=== PATIENT | female | born 2000 | race Hispanic/Latino ===

== ENCOUNTER 2025-08-10 15:57 | Emergency (ER) | payer OTHER ==
[~2025-08-10] VITALS: Ht 162.6 cm; Wt 65.8 kg
[2025-08-10 16:32] VITALS: PULSE 72; RESP 15; TEMP 98.8
[2025-08-10 18:02] LABS: BASOPHILS % 0.6 % (0.0-1.0); EOSINOPHILS % 5.3 % (0.0-6.0); LYMPHOCYTES % 39.0 % (18.0-39.1); MONOCYTES % 9.5 % (4.4-11.3); NEUTROPHILS % 45.4 % (38.7-80.0); RED CELL DISTRIBUTION WIDTH 12.8 % (11.7-14.4)
[2025-08-10 18:27] LABS: EST GLOMERULAR FILTRATION RATE 125.0 ML/MIN (>=60)
[2025-08-10 19:52] VITALS: BP 119/85; PULSE 81; RESP 15; O2SAT 100
== END 2025-08-10 19:30 | disposition home or self-care (01) ==
LOC: ER 18:15
DX: R20.2 Paresthesia of skin (principal); G35.D Multiple sclerosis, unspecified; R51.9 Headache, unspecified
CPT/HCPCS: 36415; 80053; 83735; 85025; 99283